=== PATIENT | female | born 1975 | race Two or more races ===

== ENCOUNTER 2018-07-14 14:35 | Outpatient (CLI) | payer OTHER | END 2018-07-14 14:40 | disposition home or self-care (01) | LOC: LAB 14:35 | DX: O00.101 Right tubal pregnancy without intrauterine pregnancy (principal) ==

== ENCOUNTER 2018-07-14 15:20 | Outpatient (CLI) | payer OTHER | END 2018-07-14 15:23 | disposition home or self-care (01) | LOC: SONOGRAMA 15:20 | DX: O00.109 Unspecified tubal pregnancy without intrauterine pregnancy (principal) ==

== ENCOUNTER → 2018-07-16 10:51 | Outpatient (CLI) | payer OTHER | END | disposition home or self-care (01) | LOC: LAB 10:51 | DX: O00.109 Unspecified tubal pregnancy without intrauterine pregnancy (principal) ==

== ENCOUNTER → 2018-07-22 10:05 | Outpatient (CLI) | payer OTHER | END | disposition home or self-care (01) | LOC: LAB 10:05 | DX: O00.01 Abdominal pregnancy with intrauterine pregnancy (principal) ==

== ENCOUNTER → 2018-07-22 | Outpatient (CLI) | payer OTHER | END | disposition home or self-care (01) | LOC: SONOGRAMA 12:22 | DX: N84.0 Polyp of corpus uteri (principal) ==

== ENCOUNTER 2018-10-07 12:42 | Outpatient (CLI) | payer OTHER | END 2018-10-07 13:41 | disposition home or self-care (01) | LOC: LAB 12:42 | DX: D50.8 Other iron deficiency anemias (principal); N92.5 Other specified irregular menstruation ==